=== PATIENT | male | born 1960 ===

== ENCOUNTER 2025-02-15 06:56 | Day surgery (SDC) | payer OTHER ==
[~2025-02-15 06:56] MED LIST: COZAAR50 MG PO; LANTUS SOL100 UNIT/1; LIPITOR20 MG; MONJARO
[2025-02-15] MEDS ORDERED: CEFTRIAXONE SODIUM 2,000 MG VIAL ONE (09:56)
[2025-02-15] MEDS ORDERED: HEMOSTATIC MATRIX 1 KIT KIT TOP ONE ×2 (10:04→11:30)
[2025-02-15] MEDS ORDERED: POVIDONE-IODINE 118 ML BOTT TOP ONE ×2 (10:05→11:30)
[2025-02-15] MEDS ORDERED: CEFTRIAXONE SODIUM 2,000 MG VIAL IV ONE (11:30)
[2025-02-15] MEDS ORDERED: METRONIDAZOLE/SODIUM CHLORIDE 500 MG/100 ML PIGGYBACK IV ONE (11:30)
[2025-02-15] MEDS ORDERED: DIBUCAINE 30 GM TUBE RECTAL ONE (11:30)
[2025-02-15] MEDS ORDERED: LIDOCAINE HCL 1%/EPINEPHRINE 20ML VIAL IJ ONE (11:30)
[2025-02-15] MEDS ORDERED: BUPIVACAINE HCL IN DEXTROSE/PF 2 ML AMPUL IJ ONE (11:30)
== END 2025-02-15 14:40 | disposition home or self-care (01) ==
LOC: CIR.AMB 06:56
PROVIDERS: ATTEND Colon & Rectal Surgery
DX: K60.1 Chronic anal fissure (principal); K60.321 Anal fistula, complex, initial; K62.4 Stenosis of anus and rectum; K60.0 Acute anal fissure